=== PATIENT | male | born 1945 | race Caucasian/White ===

== ENCOUNTER 2018-07-29 05:52 | Emergency (ER) | payer MEDICARE ==
[2018-07-29] MEDS ORDERED: Metoprolol Tartrate 5 MG/5 ML VIAL ONE (06:11)
[2018-07-29] MEDS ORDERED: Morphine 4 MG/ML VIAL ONE (06:11)
[2018-07-29 06:12] LABS: #Basophils 0.1 thou/uL (0.0-0.2); #Eosinphils 0.1 thou/uL (0.0-0.7); #Lymphocytes 1.9 thou/uL (1.20-3.40); #Neutrophils 7.7 thou/uL (1.40-6.50); %Basophils 0.5 % (0.0-1.0); %Eosinophils 1.2 % (0.0-10.0); %Lymphocytes 17.4 % (21.0-51.0); %Monocytes 9.6 % (0.0-10.0); %Neutrophils 71.2 % (42.0-75.0); Hemoglobin 12.4 g/dL (14.0-18.0); Mean Corpuscular HGB CONC 31.3 g/dL (32.0-36.0); Mean Corpuscular Hemoglobin 25.4 pg (27.0-31.0); Mean Corpuscular Volume 81.1 fL (78.0-98.0); Mean Platelet Volume 6.4 fL (7.4-10.4); Platelet Count 308 thou/uL (130-400); RBC Distribution Width 14.3 % (11.5-14.5); Red Blood Cell (RBC) Count 4.87 mill/uL (4.70-6.10); White Blood Cell (WBC) Count 10.8 thou/uL (4.8-10.8)
[2018-07-29 06:16] LABS: PTT 25.1 SEC (22.9-36.1); Prothrombin Time 13.1 SEC (12.0-14.7)
[2018-07-29 06:23] LABS: Anion Gap 19 mmol/L (10-20); BUN (Urea Nitrogen) 25 mg/dL (8.4-25.7); Calc. Creatinine Clearance 0 mL/min (70-130); Calcium 10.3 mg/dL (7.8-10.44); Carbon Dioxide 22 mmol/L (23-31); Chloride 100 mmol/L (98-107); Estimated GFR-MDRD 35; Glucose 366 mg/dL (83-110); Potassium 4.5 mmol/L (3.5-5.1); Sodium 136 mmol/L (136-145)
[2018-07-29 06:28] LABS: CKMB 4.1 ng/mL (0-6.6); Troponin I 0.086 ng/mL (< 0.028)
[2018-07-29] MEDS ORDERED: Insulin Regular 300 UNITS/3 ML VIAL ONE (06:31)
[2018-07-29] MEDS ORDERED: Sodium Chloride 0.9% 1,000 ML ONE (07:59)
--- NOTE | 2018-07-29 09:56 | RAD ---
CHEST 1 VIEW: HISTORY: Chest pain. COMPARISON: 05/23/2018. FINDINGS: Cardiac silhouette is magnified by projection. Pulmonary vasculature is engorged. Reticulonodular i nterstitial prominence throughout each lung is diffuse and significantly more pronounced than on the prior exam. Mediastinum is midline with aortic calcification and a right internal jugular Port-A-Cat h. No lobar consolidation or evidence of pneumothorax. Old left rib fractures. Diffuse sclerosis o f the bones. IMPRESSION: 1. Pulmonary vascular congestion. This likely accounts for the widespread reticulonodular interstit ial prominence. 2. Diffuse sclerosis of the bone. POS: [facility]
== END 2018-07-29 06:45 | disposition short-term general hospital (02) ==
LOC: MADERS 05:52
DX: R07.2 Precordial pain (principal); E11.9 Type 2 diabetes mellitus without complications; E78.5 Hyperlipidemia, unspecified; I10 Essential (primary) hypertension; Z79.82 Long term (current) use of aspirin; Z79.4 Long term (current) use of insulin; Z79.899 Other long term (current) drug therapy
CPT/HCPCS: 71045; 80048; 82553; 83880; 84484; 85025; 85610; 85730; 93005; 94760; 96374; 96375; J1815; J2270; J7050